=== PATIENT | female | born 1995 | race Caucasian/White ===

== ENCOUNTER 2019-11-21 17:43 | Emergency (ER) | payer MEDICAID, SELFPAY ==
[~2019-11-21] VITALS: Ht 167.6 cm; Wt 117.9 kg
[2019-11-21 17:45] VITALS: Ht 167.6 cm; Wt 117.9 kg
[2019-11-21 19:05] VITALS: BP 129/80
== END 2019-11-21 19:05 | disposition home or self-care (01) ==
LOC: ED 17:43
DX: U07.1 COVID-19 (principal)
CPT/HCPCS: Q0092; U0003-CS